=== PATIENT | male | born 1950 | race Caucasian/White ===

== ENCOUNTER 2019-09-18 18:10 | Emergency (ER) | payer OTHER ==
[~2019-09-18] VITALS: Ht 175.3 cm; Wt 72.6 kg
[~2019-09-18 18:10] MED LIST: NIC21P TOP
[2019-09-18] MEDS ORDERED: THIAMINE INJ 100 MG in SODIUM CHLORIDE 0.9% 1,000 ML IV ONE (18:27)
[2019-09-18 19:47] LABS: INR 1.05 (0.9-1.15); Partial Thromboplastin Time 25.5 sec (23.64-32.05)
[2019-09-18 19:53] LABS: Anion Gap 11 (5-15); Blood Alcohol < 3.0 mg/dL (0-5); Blood Urea Nitrogen 4 mg/dL (7-18); Carbon Dioxide 28 mmol/L (21-32); Chloride 73 mmol/L (98-107); Glucose 105 mg/dL (74-106); Magnesium 2.3 mg/dL (1.6-2.6)
[2019-09-18 19:59] LABS: Alanine Aminotransferase 77 U/L (16-61); Alkaline Phosphatase 123 U/L (45-117); Aspartate Aminotransferase 73 U/L (15-37); BUN/Creatinine Ratio 9.3; GFR African American 253 mL/min; GFR Non-African American 209 mL/min; Total Protein 5.8 g/dL (6.4-8.2)
[2019-09-18 20:07] LABS: Eosinophils # (auto) 0 10 ^3/uL (0-0.8); Hemoglobin 14.7 g/dL (13.5-17.5); Red Cell Distribution Width 12.9 % (11.8-14.3); White Blood Cell 6.7 10^3/uL (4.4-10.8)
[2019-09-18 20:08] LABS: Basophils # (auto) 0.1 10 ^3/uL (0-0.2); Basophils % (auto) 0.8 % (0.0-2.0); Eosinophils % (auto) 0.2 % (0.0-7.0); Hematocrit 40.5 % (41.0-53.0); Lymphocytes # (auto) 0.5 10 ^3/uL (0.4-5.4); Mean Corpuscular Hemoglobin 32.5 pg (28.0-32.0); Mean Corpuscular Hgb Conc. 36.2 g/dL (32.0-36.0); Mean Corpuscular Volume 89.6 fL (80.0-100.0); Monocytes # (auto) 0.5 10 ^3/uL (0-1.3); Neutrophils # (auto) 5.6 10 ^3/uL (1.6-8.6); Nucleated Red Blood Cells % 0.2 %; Platelet Count (auto) 158 10^3/uL (140-450); Red Blood Cells 4.52 10^6/uL (4.5-5.90)
[2019-09-18 20:19] LABS: Potassium 2.8 mmol/L (3.5-5.1); Sodium 112 mmol/L (136-145)
[2019-09-18] MEDS ORDERED: SODIUM CHL 3% 500 ML IV ONE (20:30)
[2019-09-18] MEDS ORDERED: POTASSIUM EFFERVESENT TAB 25 MEQ PO ONE (20:30)
[2019-09-18] MEDS ORDERED: POTASSIUM CHL 20MEQ/100ML 100 ML IV ONE (20:30)
[2019-09-18] MEDS ORDERED: ONDANSETRON HCL 4 MG/2 ML VIAL IV ONE (20:30)
[2019-09-19] MEDS ORDERED: SODIUM CHL 3% 500 ML IV ONE (02:15)
[2019-09-19] MEDS ORDERED: SODIUM CHLORIDE 0.9% 2,000 ML IV ONE (02:30)
[2019-09-19] MEDS ORDERED: ALBUMIN 25% 100 ML IV ONE (02:30)
[2019-09-19] MEDS ORDERED: THIAMINE 100mg/ml INJ (200mg/2ml VIAL) IV ONE (02:30)
[2019-09-19] MEDS ORDERED: FOLIC ACID 1 MG TAB PO ONE (02:30)
[2019-09-19 09:38] LABS: Albumin 3.4 g/dL (3.4-5.0); Calcium 8.1 mg/dL (8.5-10.1); Potassium 3.1 mmol/L (3.5-5.1)
[2019-09-19 09:42] LABS: BUN/Creatinine Ratio 17.6; Bilirubin, Total 0.9 mg/dL (0.2-1.0)
[2019-09-19] MEDS ORDERED: POTASSIUM EFFERVESENT TAB 25 MEQ PO ONE (11:00)
[2019-09-19 12:02] VITALS: BP 120/60
== END 2019-09-19 11:34 | disposition home or self-care (01) ==
LOC: EDBD 18:10 → ER 18:10
DX: E87.1 Hypo-osmolality and hyponatremia (principal); E87.6 Hypokalemia; K70.30 Alcoholic cirrhosis of liver without ascites; F17.210 Nicotine dependence, cigarettes, uncomplicated; Z86.73 Personal history of transient ischemic attack (TIA), and cerebral infarction without residual deficits
CPT/HCPCS: 36415; 70450; 71045; 74176; 80053; 80320; 82140; 83735; 83880; 84484; 85025; 85610; 85730; 93005; 96365; 96366; 96368; 99285; J3411; J3480; J7030; J7040; P9047